=== PATIENT | female | born 1955 | race African-American/Black ===

== ENCOUNTER 2020-07-17 11:52 | Inpatient (IN) ==
[2020-07-17] MEDS ORDERED: niCARdipine INJ 25 MG in SODIUM CHLORIDE 0.9% 240 ML IV PRN ×2 (12:42→13:51)
[2020-07-17 13:25] LABS: Basophils % 0.4 % (0.0-0.8); Eosinophils # 0.1 10*3/uL (0.0-0.87); Eosinophils % 1.1 % (0.00-10.9); Hemoglobin 7.3 GM/DL (12.0-16.0); Immature Granulocytes % 0.3 %; Immature Granulocytes Absolute 0.02 #; Lymphocytes # 1.6 10*3/uL (1.4-4.0); Lymphocytes % 21.3 % (21.3-54.2); Mean Corpuscular HGB Conc 31.7 GM/DL (32-36); Mean Corpuscular Volume 70.8 FL (87-102); Monocytes % 4.9 % (1.7-12.7); Platelet Count 165 T/CUMM (130-400); Red Blood Count 3.25 MC/CUMM (3.8-5.5); Red Cell Distribution Width 19.1 % (9.3-17.3); White Blood Count 7.4 T/CUMM (4-12)
[2020-07-17 13:42] LABS: Hypochromasia 2+; Microcytosis 1+; Ovalocytes Slight; Platelet Estimate Adequate
[2020-07-17] MEDS ORDERED: DEXTROSE 50% 25 GM/50 ML VIAL IV PRN (13:51)
[2020-07-17] MEDS ORDERED: GLUCAGON 1 MG VIAL IM PRN (13:51)
[2020-07-17] MEDS ORDERED: ALBUTEROL 2.5 MG/3 ML NEB RESP TX PRN ×2 (13:51→13:57)
[2020-07-17] MEDS: HEPARIN 5,000 UNIT/1 ML VIAL SUBCUT SCH ×2 (16:40→22:04)
[2020-07-17] MEDS: FUROSEMIDE 40 MG/4 ML VIAL IV SCH (17:00)
[2020-07-17] MEDS: PANTOPRAZOLE 40 MG TABLET PO SCH (17:01)
[2020-07-17 17:05] LABS: Albumin 3.1 G/DL (3.4-5.0); Bilirubin,Total 0.4 MG/DL (0.2-1.0); Osmolality,Calculated 303.1 MOS/KG (273-304); Total Protein 7.2 G/DL (6.4-8.3)
[2020-07-17 17:09] LABS: % Iron Saturation 24.9 % (18-50); Ferritin 334.2 ng/ml (8-252)
[2020-07-17 17:17] LABS: Thyroid Stimulating Hormone 1.1 uIU/ml (0.358-3.74)
[2020-07-17] MEDS ORDERED: LABETALOL 20 MG/4 ML SYRINGE IV PRN (18:56)
[2020-07-17] MEDS: INSULIN REGULAR 100 UNIT/ML SUBCUT SCH (20:16)
[2020-07-18] MEDS: ONDANSETRON 4 MG/2 ML VIAL IV PRN ×2 (00:07→05:50)
[2020-07-18 04:15] LABS: Basophils % 0.5 % (0.0-0.8); Eosinophils # 0.2 10*3/uL (0.0-0.87); Eosinophils % 2.6 % (0.00-10.9); Immature Granulocytes % 0.5 %; Immature Granulocytes Absolute 0.03 #; Lymphocytes # 1.6 10*3/uL (1.4-4.0); Lymphocytes % 27.6 % (21.3-54.2); Mean Corpuscular Volume 70.7 FL (87-102); Monocytes % 5.9 % (1.7-12.7); Neutrophils % 62.9 % (38.7-73.9); Platelet Count 151 T/CUMM (130-400); Red Blood Count 2.83 MC/CUMM (3.8-5.5); Red Cell Distribution Width 18.9 % (9.3-17.3); White Blood Count 5.8 T/CUMM (4-12)
[2020-07-18 04:17] LABS: Hemoglobin 6.4 GM/DL (12.0-16.0)
[2020-07-18 04:41] LABS: Hypochromasia 2+; Microcytosis 1+; Platelet Estimate Adequate
[2020-07-18 04:56] LABS: Albumin 2.6 G/DL (3.4-5.0); Bilirubin,Total 0.8 MG/DL (0.2-1.0); Calcium 7.5 MG/DL (8.5-10.1); Osmolality,Calculated 308.7 MOS/KG (273-304); Risk Ratio 2.74; Total Protein 6.3 G/DL (6.4-8.3); VLDL CHOLESTEROL 18.4 MG/DL
[2020-07-18] MEDS: HEPARIN 5,000 UNIT/1 ML VIAL SUBCUT SCH (06:12)
[2020-07-18] MEDS: INSULIN REGULAR 100 UNIT/ML SUBCUT SCH ×4 (07:45→20:05)
[2020-07-18] MEDS ORDERED: SODIUM CHLORIDE 0.9% 1,000 ML IV PRN (07:57)
[2020-07-18] MEDS ORDERED: POTASSIUM CHLORIDE 20 MEQ TABLET PO ONE (08:00)
[2020-07-18] MEDS: PANTOPRAZOLE 40 MG TABLET PO SCH (09:31)
[2020-07-18] MEDS: carvediloL 6.25 MG TABLET PO SCH ×2 (09:31→18:00)
[2020-07-18] MEDS: CHOLECALCIFEROL 5,000 UNIT TABLET PO SCH (09:31)
[2020-07-18] MEDS: FUROSEMIDE 40 MG/4 ML VIAL IV SCH ×3 (09:32→19:52)
[2020-07-18] MEDS: IRON SUCROSE 200 MG in SODIUM CHLORIDE 0.9% 100 ML IV SCH (09:43)
[2020-07-18] MEDS ORDERED: ceFAZolin 1,000 MG in SYRINGE 1 EACH IV ONE (13:26)
[2020-07-18] MEDS: SEVELAMER CARBONATE 800 MG TABLET PO SCH (18:00)
[2020-07-19] MEDS: FUROSEMIDE 40 MG/4 ML VIAL IV SCH ×3 (00:50→15:47)
[2020-07-19 06:28] LABS: Basophils % 0.3 % (0.0-0.8); Eosinophils # 0.3 10*3/uL (0.0-0.87); Hematocrit 19.3 VOL% (35.7-47.0); Immature Granulocytes % 0.3 %; Immature Granulocytes Absolute 0.02 #; Lymphocytes # 2.2 10*3/uL (1.4-4.0); Lymphocytes % 34.4 % (21.3-54.2); Mean Corpuscular HGB Conc 31.6 GM/DL (32-36); Mean Corpuscular Volume 71.2 FL (87-102); Monocytes % 7.1 % (1.7-12.7); NRBC # 0.02 10*3/uL; Neutrophils % 52.9 % (38.7-73.9); Platelet Count 140 T/CUMM (130-400); Red Blood Count 2.71 MC/CUMM (3.8-5.5); Red Cell Distribution Width 19.6 % (9.3-17.3); White Blood Count 6.3 T/CUMM (4-12)
[2020-07-19] MEDS ORDERED: ceFAZolin 1,000 MG in SYRINGE 1 EACH IV ONE (06:30)
[2020-07-19] MEDS ORDERED: HEPARIN 5,000 UNIT/1 ML VIAL ONE (06:31)
[2020-07-19] MEDS ORDERED: BUPIVACAINE MPF 0.25% 30 ML VIAL ONE (06:31)
[2020-07-19] MEDS ORDERED: LIDOCAINE 1%/EPI INJ 20 ML VIAL ONE (06:32)
[2020-07-19 06:37] LABS: Albumin 2.6 G/DL (3.4-5.0); Bilirubin,Total 0.7 MG/DL (0.2-1.0); Calcium 7.3 MG/DL (8.5-10.1); Osmolality,Calculated 303.1 MOS/KG (273-304); Total Protein 6.1 G/DL (6.4-8.3)
[2020-07-19 07:01] LABS: Hemoglobin 6.1 GM/DL (12.0-16.0)
[2020-07-19] MEDS ORDERED: SCOPOLAMINE 1.5 MG PATCH TRANSDERM ONE (07:06)
[2020-07-19] MEDS ORDERED: DIAZEPAM 5 MG TABLET PO ONE (07:06)
[2020-07-19] MEDS: carvediloL 6.25 MG TABLET PO SCH ×2 (07:19→16:01)
[2020-07-19] MEDS: PANTOPRAZOLE 40 MG TABLET PO SCH ×2 (07:19→14:18)
[2020-07-19] MEDS ORDERED: LIDOCAINE 2% 5 ML VIAL ONE (08:19)
[2020-07-19] MEDS ORDERED: propofoL 200 MG/20 ML VIAL IV ONE (08:19)
[2020-07-19] MEDS ORDERED: MIDAZOLAM 2 MG/2 ML VIAL ONE (08:20)
[2020-07-19] MEDS ORDERED: fentaNYL 100 MCG/2 ML VIAL ONE (08:20)
[2020-07-19 09:36] LABS: Anisocytosis 1+; Eosinophils 5 % (0-10); Lymphocytes 32 % (20-55); Macrocytosis 1+; Segmented Neutrophils 54 % (50-85); Total Cells Counted 100
[2020-07-19 09:37] LABS: Hypochromasia Slight; Platelet Estimate Decreased; Polychromasia 2+
[2020-07-19] MEDS ORDERED: HEPARIN 10,000 UNIT/10 ML VIAL IV SCH (13:30)
[2020-07-19] MEDS: INSULIN REGULAR 100 UNIT/ML SUBCUT SCH ×4 (14:20→20:53)
[2020-07-19] MEDS: SEVELAMER CARBONATE 800 MG TABLET PO SCH ×2 (14:21→16:01)
[2020-07-19] MEDS: CHOLECALCIFEROL 5,000 UNIT TABLET PO SCH (14:22)
[2020-07-19] MEDS: IRON SUCROSE 200 MG in SODIUM CHLORIDE 0.9% 100 ML IV SCH (17:40)
[2020-07-19] MEDS: ROSUVASTATIN 20 MG TABLET PO SCH (20:52)
[2020-07-20] MEDS: FUROSEMIDE 40 MG/4 ML VIAL IV SCH ×2 (00:54→08:53)
[2020-07-20 07:08] LABS: Basophils % 0.4 % (0.0-0.8); Eosinophils # 0.2 10*3/uL (0.0-0.87); Eosinophils % 2.9 % (0.00-10.9); Hematocrit 28.1 VOL% (35.7-47.0); Hemoglobin 9.1 GM/DL (12.0-16.0); Immature Granulocytes % 0.5 %; Immature Granulocytes Absolute 0.04 #; Lymphocytes # 1.4 10*3/uL (1.4-4.0); Lymphocytes % 18.1 % (21.3-54.2); Mean Corpuscular HGB Conc 32.4 GM/DL (32-36); Mean Corpuscular Volume 74.3 FL (87-102); Monocytes % 6.4 % (1.7-12.7); NRBC # 0.03 10*3/uL; Neutrophils % 71.7 % (38.7-73.9); Platelet Count 128 T/CUMM (130-400); Red Blood Count 3.78 MC/CUMM (3.8-5.5); Red Cell Distribution Width 20.2 % (9.3-17.3)
[2020-07-20 07:33] LABS: Albumin 2.6 G/DL (3.4-5.0); Bilirubin,Total 0.7 MG/DL (0.2-1.0); Calcium 7.6 MG/DL (8.5-10.1); Total Protein 6.4 G/DL (6.4-8.3)
[2020-07-20] MEDS: INSULIN REGULAR 100 UNIT/ML SUBCUT SCH ×3 (08:51→21:02)
[2020-07-20] MEDS: carvediloL 6.25 MG TABLET PO SCH ×2 (08:53→17:02)
[2020-07-20] MEDS: SEVELAMER CARBONATE 800 MG TABLET PO SCH ×3 (08:53→17:02)
[2020-07-20] MEDS: PANTOPRAZOLE 40 MG TABLET PO SCH (08:53)
[2020-07-20] MEDS ORDERED: cloNIDine 0.3 MG/24 HR PATCH TRANSDERM SCH (09:00)
[2020-07-20] MEDS: CHOLECALCIFEROL 5,000 UNIT TABLET PO SCH (09:55)
[2020-07-20 10:18] LABS: Hypochromasia 4+; Microcytosis 1+; Schistocytes Few; Target Cells Few
[2020-07-20 10:19] LABS: Anisocytosis 2+; Ovalocytes Few; Platelet Estimate Adequate; Poikilocytosis 1+
[2020-07-20] MEDS: IRON SUCROSE 200 MG in SODIUM CHLORIDE 0.9% 100 ML IV SCH (13:00)
[2020-07-20] MEDS: LABETALOL 20 MG/4 ML SYRINGE IV PRN (21:18)
[2020-07-20] MEDS: ROSUVASTATIN 20 MG TABLET PO SCH (21:18)
[2020-07-21 06:27] LABS: Basophils % 0.2 % (0.0-0.8); Eosinophils # 0.2 10*3/uL (0.0-0.87); Eosinophils % 2.2 % (0.00-10.9); Hematocrit 28.7 VOL% (35.7-47.0); Hemoglobin 9.3 GM/DL (12.0-16.0); Immature Granulocytes % 0.6 %; Immature Granulocytes Absolute 0.05 #; Lymphocytes # 1.8 10*3/uL (1.4-4.0); Lymphocytes % 19.5 % (21.3-54.2); Mean Corpuscular HGB Conc 32.4 GM/DL (32-36); Mean Corpuscular Volume 74.9 FL (87-102); Monocytes % 8.6 % (1.7-12.7); NRBC # 0.04 10*3/uL; Neutrophils % 68.9 % (38.7-73.9); Platelet Count 112 T/CUMM (130-400); Red Blood Count 3.83 MC/CUMM (3.8-5.5); Red Cell Distribution Width 20.1 % (9.3-17.3)
[2020-07-21 06:47] LABS: Calcium 7.7 MG/DL (8.5-10.1)
[2020-07-21 07:05] LABS: Hypochromasia 1+; Microcytosis 1+; Platelet Estimate Decreased
[2020-07-21 08:44] LABS: Alanine Aminotransferase 12 U/L (13-56); Albumin 2.6 G/DL (3.4-5.0); Alkaline Phosphatase 125 U/L (45-117); Aspartate Amino Transferase 23 U/L (0-37); Bilirubin,Direct < 0.100 MG/DL (0.0-0.20); Bilirubin,Indirect 0.3 MG/DL (0.0-1.0); Bilirubin,Total < 0.39 MG/DL (0.2-1.0); Total Protein 6.4 G/DL (6.4-8.3)
[2020-07-21] MEDS: INSULIN REGULAR 100 UNIT/ML SUBCUT SCH ×4 (09:24→20:44)
[2020-07-21] MEDS: carvediloL 6.25 MG TABLET PO SCH ×2 (09:41→16:30)
[2020-07-21] MEDS: CHOLECALCIFEROL 5,000 UNIT TABLET PO SCH (09:41)
[2020-07-21] MEDS: PANTOPRAZOLE 40 MG TABLET PO SCH (09:42)
[2020-07-21] MEDS: SEVELAMER CARBONATE 800 MG TABLET PO SCH ×3 (10:49→16:30)
[2020-07-21] MEDS: LABETALOL 20 MG/4 ML SYRINGE IV PRN (11:02)
[2020-07-21 14:00] LABS: Hepatitis B Core IgM Quant 0.09 Index; Hepatitis B Surface Ag Quant < 0.10 Index; Hepatitis B Surface Ag Result Negative (Negative); Hepatitis C Virus Ab Quant < 0.02 Index; Hepatitis C Virus Ab Result Negative (Negative)
[2020-07-21] MEDS: POLYETHYLENE GLYCOL POWDER 17 GM PACK PO SCH (16:29)
[2020-07-21] MEDS: ROSUVASTATIN 20 MG TABLET PO SCH (20:44)
[2020-07-22 06:46] LABS: Basophils % 0.3 % (0.0-0.8); Eosinophils # 0.2 10*3/uL (0.0-0.87); Eosinophils % 2.2 % (0.00-10.9); Hematocrit 31.3 VOL% (35.7-47.0); Hemoglobin 9.8 GM/DL (12.0-16.0); Immature Granulocytes % 0.4 %; Immature Granulocytes Absolute 0.04 #; Lymphocytes # 2.7 10*3/uL (1.4-4.0); Lymphocytes % 27.8 % (21.3-54.2); Mean Corpuscular HGB Conc 31.3 GM/DL (32-36); Mean Corpuscular Volume 74.7 FL (87-102); Monocytes % 8.8 % (1.7-12.7); NRBC # 0.02 10*3/uL; Neutrophils % 60.5 % (38.7-73.9); Platelet Count 110 T/CUMM (130-400); Red Blood Count 4.19 MC/CUMM (3.8-5.5); Red Cell Distribution Width 19.6 % (9.3-17.3); White Blood Count 9.6 T/CUMM (4-12)
[2020-07-22 07:10] LABS: Calcium 8.1 MG/DL (8.5-10.1); Hypochromasia 1+; Microcytosis Slight; Osmolality,Calculated 283.5 MOS/KG (273-304); Platelet Estimate Decreased
[2020-07-22] MEDS: INSULIN REGULAR 100 UNIT/ML SUBCUT SCH ×5 (07:45→20:59)
[2020-07-22] MEDS: POLYETHYLENE GLYCOL POWDER 17 GM PACK PO SCH (11:10)
[2020-07-22] MEDS: CHOLECALCIFEROL 5,000 UNIT TABLET PO SCH (11:10)
[2020-07-22] MEDS: PANTOPRAZOLE 40 MG TABLET PO SCH (11:10)
[2020-07-22] MEDS: SEVELAMER CARBONATE 800 MG TABLET PO SCH ×3 (11:10→16:37)
[2020-07-22] MEDS: carvediloL 6.25 MG TABLET PO SCH ×2 (13:24→16:37)
[2020-07-22] MEDS: ROSUVASTATIN 20 MG TABLET PO SCH (21:00)
[2020-07-23 08:25] LABS: Basophils % 0.4 % (0.0-0.8); Eosinophils # 0.1 10*3/uL (0.0-0.87); Eosinophils % 1.5 % (0.00-10.9); Hematocrit 34.2 VOL% (35.7-47.0); Hemoglobin 10.5 GM/DL (12.0-16.0); Immature Granulocytes % 0.3 %; Immature Granulocytes Absolute 0.03 #; Lymphocytes % 21.7 % (21.3-54.2); Mean Corpuscular HGB Conc 30.7 GM/DL (32-36); Mean Corpuscular Volume 78.6 FL (87-102); Monocytes % 8.5 % (1.7-12.7); Neutrophils % 67.6 % (38.7-73.9); Platelet Count 105 T/CUMM (130-400); Red Blood Count 4.35 MC/CUMM (3.8-5.5); White Blood Count 9.4 T/CUMM (4-12)
[2020-07-23] MEDS: CHOLECALCIFEROL 5,000 UNIT TABLET PO SCH (08:57)
[2020-07-23] MEDS: PANTOPRAZOLE 40 MG TABLET PO SCH (08:57)
[2020-07-23] MEDS: carvediloL 6.25 MG TABLET PO SCH ×2 (08:58→18:01)
[2020-07-23] MEDS: SEVELAMER CARBONATE 800 MG TABLET PO SCH ×3 (08:58→18:08)
[2020-07-23] MEDS: POLYETHYLENE GLYCOL POWDER 17 GM PACK PO SCH (08:58)
[2020-07-23] MEDS ORDERED: amLODIPine 5 MG TABLET PO SCH (09:00)
[2020-07-23] MEDS: INSULIN REGULAR 100 UNIT/ML SUBCUT SCH ×4 (09:40→20:34)
[2020-07-23 10:09] LABS: Calcium 8.4 MG/DL (8.5-10.1); Osmolality,Calculated 274.1 MOS/KG (273-304)
[2020-07-23] MEDS: PROCHLORPERAZINE 5 MG TABLET PO SCH (20:35)
[2020-07-23] MEDS: CYCLOBENZAPRINE 10 MG TABLET PO SCH (20:36)
[2020-07-23] MEDS: ROSUVASTATIN 20 MG TABLET PO SCH (20:36)
[2020-07-24 05:30] LABS: Basophils % 0.4 % (0.0-0.8); Eosinophils # 0.2 10*3/uL (0.0-0.87); Eosinophils % 1.4 % (0.00-10.9); Hematocrit 31.9 VOL% (35.7-47.0); Hemoglobin 10.4 GM/DL (12.0-16.0); Immature Granulocytes % 0.4 %; Immature Granulocytes Absolute 0.04 #; Lymphocytes # 2.3 10*3/uL (1.4-4.0); Lymphocytes % 21.2 % (21.3-54.2); Mean Corpuscular HGB Conc 32.6 GM/DL (32-36); Mean Corpuscular Volume 74.7 FL (87-102); Neutrophils % 64.6 % (38.7-73.9); Platelet Count 132 T/CUMM (130-400); Red Blood Count 4.27 MC/CUMM (3.8-5.5); Red Cell Distribution Width 19.1 % (9.3-17.3)
[2020-07-24 05:43] LABS: Calcium 8.6 MG/DL (8.5-10.1); Osmolality,Calculated 273.8 MOS/KG (273-304)
[2020-07-24 06:01] LABS: Hypochromasia 1+
[2020-07-24 06:02] LABS: Microcytosis Slight; Platelet Estimate Normal
[2020-07-24] MEDS: CYCLOBENZAPRINE 10 MG TABLET PO SCH (08:50)
[2020-07-24] MEDS: SEVELAMER CARBONATE 800 MG TABLET PO SCH ×2 (08:50→11:38)
[2020-07-24] MEDS: CHOLECALCIFEROL 5,000 UNIT TABLET PO SCH (08:50)
[2020-07-24] MEDS: PROCHLORPERAZINE 5 MG TABLET PO SCH (08:50)
[2020-07-24] MEDS: PANTOPRAZOLE 40 MG TABLET PO SCH (08:50)
[2020-07-24] MEDS: carvediloL 6.25 MG TABLET PO SCH (08:51)
[2020-07-24] MEDS: POLYETHYLENE GLYCOL POWDER 17 GM PACK PO SCH (08:51)
[2020-07-24] MEDS: INSULIN REGULAR 100 UNIT/ML SUBCUT SCH ×2 (09:11→11:09)
[2020-07-24] MEDS ORDERED: LACTULOSE 20 GM/30 ML UDCUP PO ONE (11:18)
[2020-07-24 13:28] VITALS: BP 123/68
== END 2020-07-24 14:05 | disposition home health service (06) | DRG 291 ==
LOC: N.ED 11:52 → N.EDINP 13:12 → SUATTDRO 13:12 → N.ICU 17:53 → N.4E 07-18 15:04
PROVIDERS: ADMIT Internal Medicine; ATTEND Hospitalist

== ENCOUNTER 2020-08-30 16:53 | Inpatient (IN) ==
[2020-08-30] MEDS ORDERED: HYDROmorphone 2 MG/1 ML VIAL IV STA ×2 (17:39→21:42)
[2020-08-30 18:02] LABS: Basophils % 0.1 % (0.0-0.8); Eosinophils # 0.3 10*3/uL (0.0-0.87); Eosinophils % 4.1 % (0.00-10.9); Hematocrit 24.7 VOL% (35.7-47.0); Hemoglobin 7.9 GM/DL (12.0-16.0); Immature Granulocytes % 0.4 %; Immature Granulocytes Absolute 0.03 #; Lymphocytes # 1.3 10*3/uL (1.4-4.0); Lymphocytes % 18.7 % (21.3-54.2); Mean Corpuscular Volume 75.3 FL (87-102); Mean Platelet Volume 10.2 FL (9.6-12.0); Monocytes % 5.7 % (1.7-12.7); Platelet Count 148 T/CUMM (130-400); Red Blood Count 3.28 MC/CUMM (3.8-5.5); Red Cell Distribution Width 17.1 % (9.3-17.3); White Blood Count 7.2 T/CUMM (4-12)
[2020-08-30 18:12] LABS: INR 1.1; PT Patient Result 11.7 SECS (9.8-11.9); Partial Thromboplastin Time 41.4 SECS (23.9-33.8)
[2020-08-30 18:15] LABS: Calcium 7.9 MG/DL (8.5-10.1); Osmolality,Calculated 293.4 MOS/KG (273-304)
[2020-08-30] MEDS ORDERED: ACETAMINOPHEN 325 MG TABLET PO PRN (23:55)
[2020-08-30] MEDS ORDERED: DEXTROSE 50% 25 GM/50 ML VIAL IV PRN (23:55)
[2020-08-30] MEDS ORDERED: DOCUSATE SODIUM 100 MG CAPSULE PO PRN (23:55)
[2020-08-30] MEDS ORDERED: GLUCAGON 1 MG VIAL IM PRN (23:55)
[2020-08-31] MEDS ORDERED: HEPARIN 5,000 UNIT/1 ML VIAL SUBCUT SCH (00:30)
[2020-08-31] MEDS: SEVELAMER CARBONATE 800 MG TABLET PO SCH ×3 (02:01→20:00)
[2020-08-31 06:03] LABS: Basophils % 0.3 % (0.0-0.8); Eosinophils # 0.3 10*3/uL (0.0-0.87); Eosinophils % 4.3 % (0.00-10.9); Hematocrit 24.9 VOL% (35.7-47.0); Hemoglobin 7.8 GM/DL (12.0-16.0); Immature Granulocytes % 0.4 %; Immature Granulocytes Absolute 0.03 #; Lymphocytes # 1.3 10*3/uL (1.4-4.0); Lymphocytes % 16.8 % (21.3-54.2); Mean Corpuscular HGB Conc 31.3 GM/DL (32-36); Mean Corpuscular Volume 75.5 FL (87-102); Mean Platelet Volume 10.9 FL (9.6-12.0); Monocytes % 7.4 % (1.7-12.7); Neutrophils % 70.8 % (38.7-73.9); Platelet Count 163 T/CUMM (130-400); Red Cell Distribution Width 17.2 % (9.3-17.3); White Blood Count 7.7 T/CUMM (4-12)
[2020-08-31 06:20] LABS: Calcium 8.2 MG/DL (8.5-10.1); Osmolality,Calculated 295.4 MOS/KG (273-304)
[2020-08-31] MEDS: HYDROmorphone 2 MG/1 ML VIAL IV PRN ×3 (06:51→19:59)
[2020-08-31] MEDS ORDERED: cloNIDine 0.3 MG/24 HR PATCH TRANSDERM SCH (09:00)
[2020-08-31] MEDS: INSULIN LISPRO 100 UNIT/ML SUBCUT SCH ×4 (11:11→20:01)
[2020-08-31] MEDS: amLODIPine 5 MG TABLET PO SCH (11:18)
[2020-08-31] MEDS: CHOLECALCIFEROL 5,000 UNIT TABLET PO SCH (11:18)
[2020-08-31] MEDS ORDERED: EPOETIN ALFA-EPBX 10,000 UNIT/ML VIAL IV PRN (11:18)
[2020-08-31] MEDS: ROSUVASTATIN 20 MG TABLET PO SCH (11:18)
[2020-08-31] MEDS: carvediloL 6.25 MG TABLET PO SCH ×2 (11:19→17:39)
[2020-08-31] MEDS: ASPIRIN CHEW 81 MG TABLET PO SCH (11:32)
[2020-08-31] MEDS: ALBUTEROL 2.5 MG/3 ML NEB RESP TX SCH ×3 (14:30→23:42)
[2020-09-01] MEDS: ALBUTEROL 2.5 MG/3 ML NEB RESP TX SCH ×5 (03:28→20:52)
[2020-09-01] MEDS: INSULIN LISPRO 100 UNIT/ML SUBCUT SCH ×4 (08:17→21:38)
[2020-09-01] MEDS: carvediloL 6.25 MG TABLET PO SCH ×2 (10:48→18:55)
[2020-09-01] MEDS: amLODIPine 5 MG TABLET PO SCH (10:48)
[2020-09-01] MEDS: ROSUVASTATIN 20 MG TABLET PO SCH (10:52)
[2020-09-01] MEDS: ASPIRIN CHEW 81 MG TABLET PO SCH (12:04)
[2020-09-01] MEDS: CHOLECALCIFEROL 5,000 UNIT TABLET PO SCH (12:05)
[2020-09-01] MEDS: SEVELAMER CARBONATE 800 MG TABLET PO SCH ×2 (12:05→21:25)
[2020-09-01 22:29] LABS: Hepatitis B Core IgM Quant 0.07 Index; Hepatitis B Surface Ag Quant 0.16 Index; Hepatitis B Surface Ag Result Negative (Negative); Hepatitis C Virus Ab Result Negative (Negative)
[2020-09-02] MEDS: ALBUTEROL 2.5 MG/3 ML NEB RESP TX SCH ×7 (01:12→19:53)
[2020-09-02 05:19] LABS: Basophils % 0.3 % (0.0-0.8); Eosinophils # 0.4 10*3/uL (0.0-0.87); Eosinophils % 5.2 % (0.00-10.9); Hematocrit 24.4 VOL% (35.7-47.0); Hemoglobin 7.7 GM/DL (12.0-16.0); Immature Granulocytes % 0.5 %; Immature Granulocytes Absolute 0.04 #; Lymphocytes # 1.7 10*3/uL (1.4-4.0); Lymphocytes % 22.7 % (21.3-54.2); Mean Corpuscular HGB Conc 31.6 GM/DL (32-36); Mean Corpuscular Volume 74.6 FL (87-102); Mean Platelet Volume 9.8 FL (9.6-12.0); Monocytes % 7.3 % (1.7-12.7); Platelet Count 169 T/CUMM (130-400); Red Blood Count 3.27 MC/CUMM (3.8-5.5); Red Cell Distribution Width 16.5 % (9.3-17.3); White Blood Count 7.7 T/CUMM (4-12)
[2020-09-02 06:45] LABS: Anisocytosis 1+; Burr Cells Few; Ovalocytes Few; Platelet Estimate Normal
[2020-09-02 06:46] LABS: Hypochromasia Slight
[2020-09-02 09:06] LABS: Sedimentation Rate-Westergren 66 MM/HR (0-30)
[2020-09-02] MEDS: ASPIRIN CHEW 81 MG TABLET PO SCH (09:27)
[2020-09-02] MEDS: ROSUVASTATIN 20 MG TABLET PO SCH (09:27)
[2020-09-02] MEDS: CHOLECALCIFEROL 5,000 UNIT TABLET PO SCH (09:27)
[2020-09-02] MEDS: SEVELAMER CARBONATE 800 MG TABLET PO SCH ×2 (09:28→20:35)
[2020-09-02] MEDS: amLODIPine 5 MG TABLET PO SCH (09:28)
[2020-09-02] MEDS: carvediloL 6.25 MG TABLET PO SCH ×2 (09:28→17:45)
[2020-09-02] MEDS: INSULIN LISPRO 100 UNIT/ML SUBCUT SCH ×4 (09:29→21:51)
[2020-09-02 10:20] LABS: Vitamin B12 731 PG/ML (211-911)
[2020-09-02 11:34] LABS: Hemoglobin A1 (Alkaline) 97.9 % (96.5-98.5); Hemoglobin A2 (Alkaline) 2.1 % (1.5-3.5)
[2020-09-02] MEDS ORDERED: SODIUM CHLORIDE 0.9% 1,000 ML IV PRN (11:52)
[2020-09-02] MEDS: HYDROmorphone 2 MG/1 ML VIAL IV PRN (13:27)
[2020-09-02] MEDS: ONDANSETRON 4 MG/2 ML VIAL IV PRN (14:30)
[2020-09-03] MEDS: ALBUTEROL 2.5 MG/3 ML NEB RESP TX SCH ×7 (01:53→23:09)
[2020-09-03] MEDS: ONDANSETRON 4 MG/2 ML VIAL IV PRN ×2 (06:36→13:12)
[2020-09-03] MEDS: INSULIN LISPRO 100 UNIT/ML SUBCUT SCH ×4 (07:13→21:40)
[2020-09-03] MEDS ORDERED: HEPARIN 10,000 UNIT/10 ML VIAL IV PRN ×2 (10:40→11:00)
[2020-09-03] MEDS: ROSUVASTATIN 20 MG TABLET PO SCH (11:55)
[2020-09-03] MEDS: SEVELAMER CARBONATE 800 MG TABLET PO SCH ×2 (11:55→16:03)
[2020-09-03] MEDS: carvediloL 6.25 MG TABLET PO SCH ×2 (11:56→16:03)
[2020-09-03] MEDS: CHOLECALCIFEROL 5,000 UNIT TABLET PO SCH (11:56)
[2020-09-03] MEDS: ASPIRIN CHEW 81 MG TABLET PO SCH (11:56)
[2020-09-03] MEDS: amLODIPine 10 MG TABLET PO SCH (11:56)
[2020-09-03] MEDS: HYDROmorphone 2 MG/1 ML VIAL IV PRN (12:06)
[2020-09-03] MEDS ORDERED: SODIUM CHLORIDE 0.9% 1,000 ML IV PRN (17:46)
[2020-09-04] MEDS: ALBUTEROL 2.5 MG/3 ML NEB RESP TX SCH ×4 (03:32→16:08)
[2020-09-04] MEDS: amLODIPine 10 MG TABLET PO SCH (10:04)
[2020-09-04] MEDS: carvediloL 6.25 MG TABLET PO SCH (10:04)
[2020-09-04] MEDS: CHOLECALCIFEROL 5,000 UNIT TABLET PO SCH (10:04)
[2020-09-04] MEDS: SEVELAMER CARBONATE 800 MG TABLET PO SCH (10:04)
[2020-09-04] MEDS: ASPIRIN CHEW 81 MG TABLET PO SCH (10:04)
[2020-09-04] MEDS: ROSUVASTATIN 20 MG TABLET PO SCH (10:05)
[2020-09-04 11:04] VITALS: BP 139/83
[2020-09-04] MEDS: HYDROmorphone 2 MG/1 ML VIAL IV PRN (11:14)
== END 2020-09-04 15:00 | disposition home health service (06) | DRG 535 ==
LOC: EDUNIT# → EDBD → N.ED 16:53 → SUATTDRO 21:52 → N.EDINP 21:52 → N.3E 23:33
PROVIDERS: ADMIT Phlebology; ATTEND Internal Medicine

== ENCOUNTER 2022-02-13 04:58 | Inpatient (IN) ==
[2022-02-13] MEDS ORDERED: ONDANSETRON 4 MG/2 ML VIAL IV STA (05:23)
[2022-02-13] MEDS ORDERED: methylPREDNISolone SOD SUC 125 MG/2 ML VIAL IV STA (05:23)
[2022-02-13] MEDS ORDERED: NITROGLYCERIN 2% OINT 1 INCH/GM PACK TOP STA (05:23)
[2022-02-13] MEDS ORDERED: FUROSEMIDE 100 MG/10 ML VIAL IV STA (05:23)
[2022-02-13] MEDS ORDERED: hydrALAZINE 20 MG/1 ML VIAL IV STA (05:23)
[2022-02-13] MEDS ORDERED: ALBUTEROL/IPRATROPIUM 3 ML NEB RESP TX STA (05:23)
[2022-02-13 05:39] LABS: Basophils % 0.4 % (0.0-0.8); Eosinophils # 0.1 10*3/uL (0.0-0.87); Eosinophils % 1.1 % (0.00-10.9); Hematocrit 23.6 VOL% (35.7-47.0); Hemoglobin 7.6 GM/DL (12.0-16.0); Immature Granulocytes % 0.6 %; Immature Granulocytes Absolute 0.03 #; Lymphocytes % 18.2 % (21.3-54.2); Mean Corpuscular HGB Conc 32.2 GM/DL (32-36); Mean Corpuscular Volume 72.8 FL (87-102); Mean Platelet Volume 10.7 FL (9.6-12.0); Monocytes # 0.8 10*3/uL (0.11-0.8); Monocytes % 14.2 % (1.7-12.7); Neutrophils % 65.5 % (38.7-73.9); Platelet Count 143 T/CUMM (130-400); Red Blood Count 3.24 MC/CUMM (3.8-5.5); Red Cell Distribution Width 17.4 % (9.3-17.3); White Blood Count 5.4 T/CUMM (4-12)
[2022-02-13 05:47] LABS: PT Patient Result 11.2 SECS (10.5-12.0)
[2022-02-13 05:53] LABS: Albumin 3.6 G/DL (3.4-5.0); Bilirubin,Total 0.6 MG/DL (0.20-1.00); Calcium 8.8 MG/DL (8.5-10.1); Osmolality,Calculated 286.7 MOS/KG (273-304); Total Protein 7.4 G/DL (6.4-8.2)
[2022-02-13 05:58] LABS: Platelet Estimate Adequate
[2022-02-13 05:59] LABS: Anisocytosis Slight; Hypochromia Slight; Poikilocytosis Slight; Target Cells Few; Tear Drop Cells Few
[2022-02-13] MEDS ORDERED: LABETALOL 20 MG/4 ML SYRINGE IV STA (05:59)
[2022-02-13] MEDS ORDERED: ACETAMINOPHEN 325 MG TABLET PO PRN (07:28)
[2022-02-13] MEDS ORDERED: GLUCAGON 1 MG VIAL IM PRN (07:28)
[2022-02-13] MEDS ORDERED: ONDANSETRON 4 MG/2 ML VIAL IV PRN (07:28)
[2022-02-13] MEDS ORDERED: MORPHINE 2 MG/1 ML SYRINGE IV PRN (07:28)
[2022-02-13] MEDS ORDERED: DEXTROSE 10% 250 ML BAG IV PRN (07:32)
[2022-02-13] MEDS ORDERED: DEXTROSE 50% 25 GM/50 ML VIAL IV PRN (07:36)
[2022-02-13 09:08] LABS: % Iron Saturation 18.9 % (18-50)
[2022-02-13] MEDS: hydrALAZINE 20 MG/1 ML VIAL IV PRN (12:46)
[2022-02-13] MEDS: ASPIRIN EC 81 MG TABLET PO SCH (13:01)
[2022-02-13] MEDS: carvediloL 6.25 MG TABLET PO SCH ×2 (13:01→19:30)
[2022-02-13] MEDS: SEVELAMER CARBONATE 800 MG TABLET PO SCH (13:01)
[2022-02-13] MEDS: HEPARIN 5,000 UNIT/1 ML VIAL SUBCUT SCH ×2 (13:02→19:30)
[2022-02-13] MEDS: LOSARTAN 25 MG TABLET PO SCH (13:02)
[2022-02-13] MEDS: amLODIPine 5 MG TABLET PO SCH (13:03)
[2022-02-13] MEDS: minoxidiL 2.5 MG TABLET PO SCH (13:03)
[2022-02-13] MEDS: INSULIN LISPRO 100 UNIT/ML SUBCUT SCH ×3 (13:03→20:20)
[2022-02-13] MEDS: ALBUTEROL/IPRATROPIUM 3 ML NEB RESP TX SCH ×2 (13:28→20:29)
[2022-02-13 15:30] LABS: Hematocrit 25.7 VOL% (35.7-47.0); Hemoglobin 8.5 GM/DL (12.0-16.0)
[2022-02-14] MEDS ORDERED: ZALEPLON 5 MG CAPSULE PO PRN (00:24)
[2022-02-14] MEDS: ALBUTEROL INHALER 18 GM INH SCH ×3 (01:10→20:00)
[2022-02-14] MEDS: hydrALAZINE 20 MG/1 ML VIAL IV PRN ×3 (04:35→16:57)
[2022-02-14 05:59] LABS: Basophils % 0.2 % (0.0-0.8); Eosinophils # 0.1 10*3/uL (0.0-0.87); Eosinophils % 1.5 % (0.00-10.9); Hematocrit 24.6 VOL% (35.7-47.0); Hemoglobin 8.1 GM/DL (12.0-16.0); Immature Granulocytes % 0.9 %; Immature Granulocytes Absolute 0.04 #; Lymphocytes # 1.1 10*3/uL (1.4-4.0); Lymphocytes % 23.5 % (21.3-54.2); Mean Corpuscular HGB Conc 32.9 GM/DL (32-36); Mean Platelet Volume 10.3 FL (9.6-12.0); Monocytes # 0.5 10*3/uL (0.11-0.8); Monocytes % 11.9 % (1.7-12.7); Platelet Count 126 T/CUMM (130-400); Red Blood Count 3.28 MC/CUMM (3.8-5.5); Red Cell Distribution Width 18.5 % (9.3-17.3); White Blood Count 4.6 T/CUMM (4-12)
[2022-02-14 06:21] LABS: Anisocytosis 1+; Ovalocytes Few; Platelet Estimate Adequate; Target Cells Few
[2022-02-14 06:22] LABS: Hypochromia Slight
[2022-02-14 06:28] LABS: Folate 6.08 NG/ML (5.38-24.0)
[2022-02-14 06:31] LABS: Calcium 8.3 MG/DL (8.5-10.1); Potassium 3.3 MMOL/L (3.5-5.1); Thyroid Stimulating Hormone 1.05 uIU/ml (0.358-3.74)
[2022-02-14 06:36] LABS: Risk Ratio 2.22
[2022-02-14] MEDS: SEVELAMER CARBONATE 800 MG TABLET PO SCH (08:43)
[2022-02-14] MEDS: ASPIRIN EC 81 MG TABLET PO SCH (08:43)
[2022-02-14] MEDS: LOSARTAN 25 MG TABLET PO SCH (08:44)
[2022-02-14] MEDS: amLODIPine 5 MG TABLET PO SCH (08:44)
[2022-02-14] MEDS: minoxidiL 2.5 MG TABLET PO SCH (08:44)
[2022-02-14] MEDS: carvediloL 6.25 MG TABLET PO SCH ×2 (08:45→21:05)
[2022-02-14] MEDS: HEPARIN 5,000 UNIT/1 ML VIAL SUBCUT SCH ×2 (08:49→21:05)
[2022-02-14] MEDS: INSULIN LISPRO 100 UNIT/ML SUBCUT SCH ×4 (09:00→21:12)
[2022-02-14] MEDS ORDERED: ALBUTEROL 2.5 MG/3 ML NEB RESP TX PRN (12:58)
[2022-02-14] MEDS: hydrALAZINE 25 MG TABLET PO SCH ×2 (16:00→21:17)
[2022-02-14] MEDS: ASCORBIC ACID 500 MG TABLET PO SCH (16:15)
[2022-02-14] MEDS: FAMOTIDINE 20 MG TABLET PO SCH (16:15)
[2022-02-14] MEDS: FERROUS SULFATE 325 MG TABLET PO SCH (16:15)
[2022-02-14] MEDS: ZALEPLON 5 MG CAPSULE PO PRN (21:05)
[2022-02-14] MEDS: ATORVASTATIN 40 MG TABLET PO SCH (21:05)
[2022-02-15] MEDS: ALBUTEROL INHALER 18 GM INH SCH ×3 (01:00→21:19)
[2022-02-15 05:19] LABS: Basophils % 0.5 % (0.0-0.8); Eosinophils # 0.1 10*3/uL (0.0-0.87); Eosinophils % 1.6 % (0.00-10.9); Hematocrit 24.5 VOL% (35.7-47.0); Immature Granulocytes % 0.9 %; Immature Granulocytes Absolute 0.04 #; Lymphocytes # 1.6 10*3/uL (1.4-4.0); Lymphocytes % 35.6 % (21.3-54.2); Mean Corpuscular HGB Conc 32.7 GM/DL (32-36); Mean Corpuscular Volume 74.9 FL (87-102); Mean Platelet Volume 11.1 FL (9.6-12.0); Monocytes # 0.5 10*3/uL (0.11-0.8); Monocytes % 11.9 % (1.7-12.7); Neutrophils % 49.5 % (38.7-73.9); Platelet Count 137 T/CUMM (130-400); Red Blood Count 3.27 MC/CUMM (3.8-5.5); Red Cell Distribution Width 18.8 % (9.3-17.3); White Blood Count 4.4 T/CUMM (4-12)
[2022-02-15 05:38] LABS: Hypochromia 1+; Target Cells Few
[2022-02-15 05:40] LABS: Anisocytosis 1+; Ovalocytes Slight; Platelet Estimate Adequate
[2022-02-15 05:41] LABS: Albumin 2.8 G/DL (3.4-5.0); Bilirubin,Total 0.4 MG/DL (0.20-1.00); Calcium 7.7 MG/DL (8.5-10.1); Osmolality,Calculated 283.8 MOS/KG (273-304); Potassium 3.3 MMOL/L (3.5-5.1); Total Protein 6.5 G/DL (6.4-8.2)
[2022-02-15] MEDS: INSULIN LISPRO 100 UNIT/ML SUBCUT SCH ×4 (08:13→21:19)
[2022-02-15] MEDS: ASPIRIN EC 81 MG TABLET PO SCH (10:43)
[2022-02-15] MEDS: FERROUS SULFATE 325 MG TABLET PO SCH ×2 (10:43→16:13)
[2022-02-15] MEDS: hydrALAZINE 25 MG TABLET PO SCH ×3 (10:43→21:18)
[2022-02-15] MEDS: SEVELAMER CARBONATE 800 MG TABLET PO SCH (10:43)
[2022-02-15] MEDS: carvediloL 6.25 MG TABLET PO SCH ×2 (10:43→21:18)
[2022-02-15] MEDS: HEPARIN 5,000 UNIT/1 ML VIAL SUBCUT SCH ×2 (10:44→21:17)
[2022-02-15] MEDS: ASCORBIC ACID 500 MG TABLET PO SCH (10:44)
[2022-02-15] MEDS: FAMOTIDINE 20 MG TABLET PO SCH (10:44)
[2022-02-15] MEDS: minoxidiL 2.5 MG TABLET PO SCH (10:44)
[2022-02-15] MEDS ORDERED: POTASSIUM CHLORIDE 20 MEQ TABLET PO ONE (10:49)
[2022-02-15] MEDS: CHOLECALCIFEROL 5,000 UNIT TABLET PO SCH (12:24)
[2022-02-15] MEDS: DEXAMETHASONE 4 MG TABLET PO SCH (16:13)
[2022-02-15] MEDS: ATORVASTATIN 40 MG TABLET PO SCH (21:18)
[2022-02-15] MEDS: ZALEPLON 5 MG CAPSULE PO PRN (21:18)
[2022-02-16] MEDS: ALBUTEROL INHALER 18 GM INH SCH ×4 (00:05→21:04)
[2022-02-16 05:54] LABS: Basophils % 0.2 % (0.0-0.8); Eosinophils % 0.2 % (0.00-10.9); Hematocrit 25.7 VOL% (35.7-47.0); Hemoglobin 8.2 GM/DL (12.0-16.0); Immature Granulocytes % 0.7 %; Immature Granulocytes Absolute 0.03 #; Lymphocytes # 0.9 10*3/uL (1.4-4.0); Mean Corpuscular HGB Conc 31.9 GM/DL (32-36); Mean Corpuscular Volume 75.8 FL (87-102); Mean Platelet Volume 11.1 FL (9.6-12.0); Monocytes # 0.2 10*3/uL (0.11-0.8); Neutrophils % 74.9 % (38.7-73.9); Platelet Count 164 T/CUMM (130-400); Red Blood Count 3.39 MC/CUMM (3.8-5.5); Red Cell Distribution Width 19.3 % (9.3-17.3); White Blood Count 4.3 T/CUMM (4-12)
[2022-02-16 06:10] LABS: Bilirubin,Total 0.5 MG/DL (0.20-1.00); Calcium 7.8 MG/DL (8.5-10.1); Osmolality,Calculated 287.8 MOS/KG (273-304); Total Protein 6.6 G/DL (6.4-8.2)
[2022-02-16 06:20] LABS: Hypochromia 1+; Lymphocytes 17 % (20-55); Microcytosis 1+; Myelocytes 1 %; Target Cells Slight; Total Cells Counted 100
[2022-02-16 06:21] LABS: Platelet Estimate Adequate
[2022-02-16] MEDS: INSULIN LISPRO 100 UNIT/ML SUBCUT SCH ×4 (08:07→21:05)
[2022-02-16] MEDS: carvediloL 6.25 MG TABLET PO SCH ×2 (08:37→21:04)
[2022-02-16] MEDS: ASPIRIN EC 81 MG TABLET PO SCH (08:37)
[2022-02-16] MEDS: FAMOTIDINE 20 MG TABLET PO SCH (08:38)
[2022-02-16] MEDS: minoxidiL 2.5 MG TABLET PO SCH (08:38)
[2022-02-16] MEDS: hydrALAZINE 25 MG TABLET PO SCH ×3 (08:38→21:04)
[2022-02-16] MEDS: DEXAMETHASONE 4 MG TABLET PO SCH (08:38)
[2022-02-16] MEDS: FERROUS SULFATE 325 MG TABLET PO SCH ×2 (08:38→16:03)
[2022-02-16] MEDS: SEVELAMER CARBONATE 800 MG TABLET PO SCH (08:38)
[2022-02-16] MEDS: ASCORBIC ACID 500 MG TABLET PO SCH (08:38)
[2022-02-16] MEDS: AZITHROMYCIN 250 MG TABLET PO SCH (08:38)
[2022-02-16] MEDS: HEPARIN 5,000 UNIT/1 ML VIAL SUBCUT SCH ×2 (08:43→21:05)
[2022-02-16] MEDS: CHOLECALCIFEROL 5,000 UNIT TABLET PO SCH (13:10)
[2022-02-16] MEDS ORDERED: TUBERCULIN SKIN TEST 0.1 ML SYRINGE INTRADERM ONE ×3 (17:00→19:00)
[2022-02-16] MEDS: ATORVASTATIN 40 MG TABLET PO SCH (21:04)
[2022-02-17] MEDS: ZALEPLON 5 MG CAPSULE PO PRN ×2 (00:28→20:46)
[2022-02-17] MEDS: ALBUTEROL INHALER 18 GM INH SCH ×3 (00:29→20:45)
[2022-02-17 05:44] LABS: Basophils % 0.1 % (0.0-0.8); Hematocrit 27.1 VOL% (35.7-47.0); Hemoglobin 8.9 GM/DL (12.0-16.0); Immature Granulocytes % 0.5 %; Immature Granulocytes Absolute 0.05 #; Lymphocytes % 10.3 % (21.3-54.2); Mean Corpuscular HGB Conc 32.8 GM/DL (32-36); Mean Corpuscular Volume 74.7 FL (87-102); Mean Platelet Volume 10.7 FL (9.6-12.0); Monocytes # 0.4 10*3/uL (0.11-0.8); Monocytes % 4.6 % (1.7-12.7); NRBC # 0.02 10*3/uL; Neutrophils % 84.5 % (38.7-73.9); Platelet Count 183 T/CUMM (130-400); Red Blood Count 3.63 MC/CUMM (3.8-5.5); Red Cell Distribution Width 19.1 % (9.3-17.3); White Blood Count 9.5 T/CUMM (4-12)
[2022-02-17 06:13] LABS: Calcium 8.3 MG/DL (8.5-10.1); Osmolality,Calculated 286.8 MOS/KG (273-304)
[2022-02-17 06:16] LABS: Alanine Aminotransferase 17 U/L (13-56); Albumin 2.8 G/DL (3.4-5.0); Alkaline Phosphatase 104 U/L (45-117); Aspartate Amino Transferase 16 U/L (0-37); Bilirubin,Total < 0.39 MG/DL (0.20-1.00); Blood Urea Nitrogen 41 MG/DL (7-18); Calcium 8.3 MG/DL (8.5-10.1); Carbon Dioxide 26 MMOL/L (21-32); Chloride 103 MMOL/L (98-107); Glucose 138 MG/DL (74-106); Potassium 3.9 MMOL/L (3.5-5.1); Sodium 136 MMOL/L (136-145)
[2022-02-17] MEDS: INSULIN LISPRO 100 UNIT/ML SUBCUT SCH ×4 (08:04→21:01)
[2022-02-17] MEDS: HEPARIN 5,000 UNIT/1 ML VIAL SUBCUT SCH ×2 (08:21→20:50)
[2022-02-17] MEDS: SEVELAMER CARBONATE 800 MG TABLET PO SCH (08:22)
[2022-02-17] MEDS: FAMOTIDINE 20 MG TABLET PO SCH (08:23)
[2022-02-17] MEDS: FERROUS SULFATE 325 MG TABLET PO SCH ×2 (08:23→16:29)
[2022-02-17] MEDS: carvediloL 6.25 MG TABLET PO SCH ×2 (08:23→20:49)
[2022-02-17] MEDS: DEXAMETHASONE 4 MG TABLET PO SCH (08:23)
[2022-02-17] MEDS: hydrALAZINE 25 MG TABLET PO SCH ×3 (08:24→20:49)
[2022-02-17] MEDS: AZITHROMYCIN 250 MG TABLET PO SCH (08:24)
[2022-02-17] MEDS: ASCORBIC ACID 500 MG TABLET PO SCH (08:24)
[2022-02-17] MEDS: ASPIRIN EC 81 MG TABLET PO SCH (08:24)
[2022-02-17] MEDS: minoxidiL 2.5 MG TABLET PO SCH (08:47)
[2022-02-17] MEDS: CHOLECALCIFEROL 5,000 UNIT TABLET PO SCH (12:40)
[2022-02-17] MEDS: ATORVASTATIN 40 MG TABLET PO SCH (20:50)
[2022-02-18] MEDS: ALBUTEROL INHALER 18 GM INH SCH ×3 (01:26→21:37)
[2022-02-18 06:46] LABS: Basophils % 0.1 % (0.0-0.8); Hematocrit 25.5 VOL% (35.7-47.0); Hemoglobin 8.4 GM/DL (12.0-16.0); Immature Granulocytes % 1.1 %; Lymphocytes % 11.2 % (21.3-54.2); Mean Corpuscular HGB Conc 32.9 GM/DL (32-36); Mean Corpuscular Volume 74.6 FL (87-102); Mean Platelet Volume 9.7 FL (9.6-12.0); Monocytes # 0.5 10*3/uL (0.11-0.8); Monocytes % 4.8 % (1.7-12.7); Neutrophils % 82.8 % (38.7-73.9); Platelet Count 173 T/CUMM (130-400); Red Blood Count 3.42 MC/CUMM (3.8-5.5); Red Cell Distribution Width 19.6 % (9.3-17.3); White Blood Count 9.3 T/CUMM (4-12)
[2022-02-18 07:05] LABS: Alanine Aminotransferase 15 U/L (13-56); Alkaline Phosphatase 88 U/L (45-117); Aspartate Amino Transferase 14 U/L (0-37); Bilirubin,Total < 0.39 MG/DL (0.20-1.00); Blood Urea Nitrogen 65 MG/DL (7-18); Calcium 8.6 MG/DL (8.5-10.1); Carbon Dioxide 25 MMOL/L (21-32); Chloride 102 MMOL/L (98-107); Glucose 123 MG/DL (74-106); Osmolality,Calculated 292.8 MOS/KG (273-304); Potassium 3.9 MMOL/L (3.5-5.1); Sodium 137 MMOL/L (136-145); Total Protein 6.5 G/DL (6.4-8.2)
[2022-02-18] MEDS: HEPARIN 5,000 UNIT/1 ML VIAL SUBCUT SCH ×2 (08:52→21:42)
[2022-02-18] MEDS: SEVELAMER CARBONATE 800 MG TABLET PO SCH (08:52)
[2022-02-18] MEDS: ASPIRIN EC 81 MG TABLET PO SCH (08:53)
[2022-02-18] MEDS: DEXAMETHASONE 4 MG TABLET PO SCH (08:53)
[2022-02-18] MEDS: AZITHROMYCIN 250 MG TABLET PO SCH (08:53)
[2022-02-18] MEDS: minoxidiL 2.5 MG TABLET PO SCH (08:54)
[2022-02-18] MEDS: hydrALAZINE 25 MG TABLET PO SCH ×3 (08:54→21:39)
[2022-02-18] MEDS: ASCORBIC ACID 500 MG TABLET PO SCH (08:54)
[2022-02-18] MEDS: FAMOTIDINE 20 MG TABLET PO SCH (08:54)
[2022-02-18] MEDS: carvediloL 6.25 MG TABLET PO SCH ×2 (08:54→21:39)
[2022-02-18] MEDS: FERROUS SULFATE 325 MG TABLET PO SCH ×2 (08:54→16:53)
[2022-02-18] MEDS: INSULIN LISPRO 100 UNIT/ML SUBCUT SCH ×4 (09:15→21:40)
[2022-02-18] MEDS: CHOLECALCIFEROL 5,000 UNIT TABLET PO SCH (11:49)
[2022-02-18] MEDS: ZALEPLON 5 MG CAPSULE PO PRN (21:39)
[2022-02-18] MEDS: ATORVASTATIN 40 MG TABLET PO SCH (21:39)
[2022-02-19] MEDS: ALBUTEROL INHALER 18 GM INH SCH ×5 (00:38→21:33)
[2022-02-19 05:03] LABS: Hematocrit 24.9 VOL% (35.7-47.0); Hemoglobin 8.1 GM/DL (12.0-16.0); Immature Granulocytes % 1.3 %; Immature Granulocytes Absolute 0.12 #; Lymphocytes # 1.6 10*3/uL (1.4-4.0); Lymphocytes % 17.6 % (21.3-54.2); Mean Corpuscular HGB Conc 32.5 GM/DL (32-36); Mean Corpuscular Volume 74.3 FL (87-102); Mean Platelet Volume 9.9 FL (9.6-12.0); Monocytes # 0.7 10*3/uL (0.11-0.8); Monocytes % 7.3 % (1.7-12.7); Neutrophils % 73.8 % (38.7-73.9); Platelet Count 166 T/CUMM (130-400); Red Blood Count 3.35 MC/CUMM (3.8-5.5); Red Cell Distribution Width 19.3 % (9.3-17.3); White Blood Count 9.3 T/CUMM (4-12)
[2022-02-19 05:18] LABS: Calcium 8.3 MG/DL (8.5-10.1); Osmolality,Calculated 286.7 MOS/KG (273-304)
[2022-02-19] MEDS: INSULIN LISPRO 100 UNIT/ML SUBCUT SCH ×4 (10:15→21:33)
[2022-02-19] MEDS: FERROUS SULFATE 325 MG TABLET PO SCH ×2 (10:16→18:01)
[2022-02-19] MEDS: hydrALAZINE 25 MG TABLET PO SCH ×3 (10:16→21:33)
[2022-02-19] MEDS: ASPIRIN EC 81 MG TABLET PO SCH (10:16)
[2022-02-19] MEDS: SEVELAMER CARBONATE 800 MG TABLET PO SCH (10:16)
[2022-02-19] MEDS: carvediloL 6.25 MG TABLET PO SCH ×2 (10:17→21:33)
[2022-02-19] MEDS: AZITHROMYCIN 250 MG TABLET PO SCH (10:17)
[2022-02-19] MEDS: FAMOTIDINE 20 MG TABLET PO SCH (10:17)
[2022-02-19] MEDS: ASCORBIC ACID 500 MG TABLET PO SCH (10:17)
[2022-02-19] MEDS: DEXAMETHASONE 4 MG TABLET PO SCH (10:17)
[2022-02-19] MEDS: HEPARIN 5,000 UNIT/1 ML VIAL SUBCUT SCH ×2 (10:17→21:33)
[2022-02-19] MEDS: minoxidiL 2.5 MG TABLET PO SCH (10:17)
[2022-02-19] MEDS: CHOLECALCIFEROL 5,000 UNIT TABLET PO SCH (13:19)
[2022-02-19] MEDS: ATORVASTATIN 40 MG TABLET PO SCH (21:33)
[2022-02-19] MEDS: ZALEPLON 5 MG CAPSULE PO PRN (21:33)
[2022-02-20] MEDS: ALBUTEROL INHALER 18 GM INH SCH ×3 (00:18→13:08)
[2022-02-20 06:54] LABS: Basophils % 0.1 % (0.0-0.8); Eosinophils % 0.2 % (0.00-10.9); Hematocrit 26.2 VOL% (35.7-47.0); Hemoglobin 8.6 GM/DL (12.0-16.0); Immature Granulocytes % 2.1 %; Immature Granulocytes Absolute 0.22 #; Lymphocytes # 1.9 10*3/uL (1.4-4.0); Lymphocytes % 18.6 % (21.3-54.2); Mean Corpuscular HGB Conc 32.8 GM/DL (32-36); Mean Corpuscular Volume 73.8 FL (87-102); Monocytes # 0.7 10*3/uL (0.11-0.8); Monocytes % 7.1 % (1.7-12.7); NRBC # 0.02 10*3/uL; Neutrophils % 71.9 % (38.7-73.9); Platelet Count 169 T/CUMM (130-400); Red Blood Count 3.55 MC/CUMM (3.8-5.5); Red Cell Distribution Width 19.5 % (9.3-17.3); White Blood Count 10.4 T/CUMM (4-12)
[2022-02-20 07:07] LABS: Calcium 8.4 MG/DL (8.5-10.1); Osmolality,Calculated 291.2 MOS/KG (273-304); Potassium 4.3 MMOL/L (3.5-5.1)
[2022-02-20] MEDS: INSULIN LISPRO 100 UNIT/ML SUBCUT SCH ×4 (09:41→22:20)
[2022-02-20] MEDS: AZITHROMYCIN 250 MG TABLET PO SCH (10:12)
[2022-02-20] MEDS: DEXAMETHASONE 4 MG TABLET PO SCH (10:13)
[2022-02-20] MEDS: ASPIRIN EC 81 MG TABLET PO SCH (10:14)
[2022-02-20] MEDS: SEVELAMER CARBONATE 800 MG TABLET PO SCH (10:14)
[2022-02-20] MEDS: ASCORBIC ACID 500 MG TABLET PO SCH (10:15)
[2022-02-20] MEDS: FERROUS SULFATE 325 MG TABLET PO SCH ×2 (10:15→17:08)
[2022-02-20] MEDS: carvediloL 6.25 MG TABLET PO SCH ×2 (10:17→22:20)
[2022-02-20] MEDS: FAMOTIDINE 20 MG TABLET PO SCH (10:18)
[2022-02-20] MEDS: minoxidiL 2.5 MG TABLET PO SCH (10:18)
[2022-02-20] MEDS: HEPARIN 5,000 UNIT/1 ML VIAL SUBCUT SCH ×2 (10:21→22:41)
[2022-02-20] MEDS: hydrALAZINE 25 MG TABLET PO SCH ×3 (10:25→22:15)
[2022-02-20] MEDS: CHOLECALCIFEROL 5,000 UNIT TABLET PO SCH (13:08)
[2022-02-20] MEDS: ATORVASTATIN 40 MG TABLET PO SCH (22:20)
[2022-02-21 06:26] LABS: Basophils % 0.1 % (0.0-0.8); Eosinophils % 0.2 % (0.00-10.9); Hematocrit 25.1 VOL% (35.7-47.0); Hemoglobin 8.4 GM/DL (12.0-16.0); Immature Granulocytes % 1.7 %; Immature Granulocytes Absolute 0.17 #; Lymphocytes # 1.9 10*3/uL (1.4-4.0); Lymphocytes % 18.4 % (21.3-54.2); Mean Corpuscular HGB Conc 33.5 GM/DL (32-36); Mean Corpuscular Volume 73.6 FL (87-102); Mean Platelet Volume 9.9 FL (9.6-12.0); Monocytes % 9.5 % (1.7-12.7); Neutrophils % 70.1 % (38.7-73.9); Platelet Count 180 T/CUMM (130-400); Red Blood Count 3.41 MC/CUMM (3.8-5.5); Red Cell Distribution Width 19.3 % (9.3-17.3); White Blood Count 10.1 T/CUMM (4-12)
[2022-02-21 06:42] LABS: Calcium 8.5 MG/DL (8.5-10.1); Osmolality,Calculated 286.8 MOS/KG (273-304)
[2022-02-21] MEDS: INSULIN LISPRO 100 UNIT/ML SUBCUT SCH ×4 (08:35→20:10)
[2022-02-21] MEDS: ASPIRIN EC 81 MG TABLET PO SCH (10:08)
[2022-02-21] MEDS: FERROUS SULFATE 325 MG TABLET PO SCH ×2 (10:08→17:59)
[2022-02-21] MEDS: FAMOTIDINE 20 MG TABLET PO SCH (10:08)
[2022-02-21] MEDS: SEVELAMER CARBONATE 800 MG TABLET PO SCH (10:08)
[2022-02-21] MEDS: ASCORBIC ACID 500 MG TABLET PO SCH (10:08)
[2022-02-21] MEDS: hydrALAZINE 25 MG TABLET PO SCH ×3 (10:09→21:14)
[2022-02-21] MEDS: carvediloL 6.25 MG TABLET PO SCH ×2 (10:09→21:13)
[2022-02-21] MEDS: minoxidiL 2.5 MG TABLET PO SCH (10:09)
[2022-02-21] MEDS: ALBUTEROL INHALER 18 GM INH SCH ×5 (10:10→19:15)
[2022-02-21] MEDS: HEPARIN 5,000 UNIT/1 ML VIAL SUBCUT SCH ×2 (10:16→21:25)
[2022-02-21] MEDS: CHOLECALCIFEROL 5,000 UNIT TABLET PO SCH (12:40)
[2022-02-21] MEDS: MIRTAZAPINE 15 MG TABLET PO SCH (21:13)
[2022-02-21] MEDS: ATORVASTATIN 40 MG TABLET PO SCH (21:14)
[2022-02-22] MEDS: ALBUTEROL INHALER 18 GM INH SCH ×2 (04:04→06:05)
[2022-02-22 06:12] LABS: Basophils % 0.1 % (0.0-0.8); Eosinophils # 0.2 10*3/uL (0.0-0.87); Eosinophils % 2.2 % (0.00-10.9); Hematocrit 25.8 VOL% (35.7-47.0); Hemoglobin 8.5 GM/DL (12.0-16.0); Immature Granulocytes % 1.6 %; Immature Granulocytes Absolute 0.15 #; Lymphocytes # 2.4 10*3/uL (1.4-4.0); Lymphocytes % 24.7 % (21.3-54.2); Mean Corpuscular HGB Conc 32.9 GM/DL (32-36); Mean Corpuscular Volume 73.9 FL (87-102); Mean Platelet Volume 11.1 FL (9.6-12.0); Neutrophils % 61.4 % (38.7-73.9); Platelet Count 194 T/CUMM (130-400); Red Blood Count 3.49 MC/CUMM (3.8-5.5); Red Cell Distribution Width 19.4 % (9.3-17.3); White Blood Count 9.6 T/CUMM (4-12)
[2022-02-22 07:02] LABS: Calcium 8.3 MG/DL (8.5-10.1); Osmolality,Calculated 291.7 MOS/KG (273-304); Potassium 4.3 MMOL/L (3.5-5.1)
[2022-02-22] MEDS: hydrALAZINE 25 MG TABLET PO SCH ×2 (10:30→17:15)
[2022-02-22] MEDS: FERROUS SULFATE 325 MG TABLET PO SCH ×2 (10:30→17:15)
[2022-02-22] MEDS: SEVELAMER CARBONATE 800 MG TABLET PO SCH (10:30)
[2022-02-22] MEDS: ASPIRIN EC 81 MG TABLET PO SCH (10:30)
[2022-02-22] MEDS: FAMOTIDINE 20 MG TABLET PO SCH (10:31)
[2022-02-22] MEDS: ASCORBIC ACID 500 MG TABLET PO SCH (10:31)
[2022-02-22] MEDS: minoxidiL 2.5 MG TABLET PO SCH (10:31)
[2022-02-22] MEDS: INSULIN LISPRO 100 UNIT/ML SUBCUT SCH ×3 (10:32→18:08)
[2022-02-22] MEDS: carvediloL 6.25 MG TABLET PO SCH ×2 (10:32→22:58)
[2022-02-22] MEDS: HEPARIN 5,000 UNIT/1 ML VIAL SUBCUT SCH ×2 (10:42→22:57)
[2022-02-22] MEDS ORDERED: KETOROLAC 15 MG/1 ML VIAL IV ONE (14:53)
[2022-02-22] MEDS: CHOLECALCIFEROL 5,000 UNIT TABLET PO SCH (15:17)
[2022-02-22] MEDS: MIRTAZAPINE 15 MG TABLET PO SCH (22:58)
[2022-02-22] MEDS: ATORVASTATIN 40 MG TABLET PO SCH (22:58)
[2022-02-23] MEDS: hydrALAZINE 25 MG TABLET PO SCH ×4 (00:46→21:21)
[2022-02-23] MEDS: ALBUTEROL INHALER 18 GM INH SCH ×3 (00:46→21:24)
[2022-02-23] MEDS: INSULIN LISPRO 100 UNIT/ML SUBCUT SCH ×3 (00:49→20:46)
[2022-02-23 06:22] LABS: Basophils % 0.1 % (0.0-0.8); Eosinophils # 0.4 10*3/uL (0.0-0.87); Hematocrit 25.9 VOL% (35.7-47.0); Hemoglobin 8.5 GM/DL (12.0-16.0); Immature Granulocytes % 1.6 %; Immature Granulocytes Absolute 0.14 #; Lymphocytes # 1.9 10*3/uL (1.4-4.0); Lymphocytes % 21.7 % (21.3-54.2); Mean Corpuscular HGB Conc 32.8 GM/DL (32-36); Mean Corpuscular Volume 73.4 FL (87-102); Mean Platelet Volume 10.7 FL (9.6-12.0); Monocytes # 0.9 10*3/uL (0.11-0.8); Monocytes % 10.4 % (1.7-12.7); Neutrophils % 62.2 % (38.7-73.9); Platelet Count 181 T/CUMM (130-400); Red Blood Count 3.53 MC/CUMM (3.8-5.5); Red Cell Distribution Width 19.4 % (9.3-17.3); White Blood Count 8.7 T/CUMM (4-12)
[2022-02-23 06:40] LABS: Calcium 8.3 MG/DL (8.5-10.1); Potassium 4.8 MMOL/L (3.5-5.1)
[2022-02-23] MEDS: FAMOTIDINE 20 MG TABLET PO SCH (10:19)
[2022-02-23] MEDS: minoxidiL 2.5 MG TABLET PO SCH (10:20)
[2022-02-23] MEDS: ASPIRIN EC 81 MG TABLET PO SCH (10:20)
[2022-02-23] MEDS: SEVELAMER CARBONATE 800 MG TABLET PO SCH (10:20)
[2022-02-23] MEDS: FERROUS SULFATE 325 MG TABLET PO SCH ×2 (10:20→17:13)
[2022-02-23] MEDS: HEPARIN 5,000 UNIT/1 ML VIAL SUBCUT SCH ×2 (10:21→21:23)
[2022-02-23] MEDS: ASCORBIC ACID 500 MG TABLET PO SCH (10:24)
[2022-02-23] MEDS: carvediloL 6.25 MG TABLET PO SCH ×2 (10:24→21:22)
[2022-02-23] MEDS: CHOLECALCIFEROL 5,000 UNIT TABLET PO SCH (17:13)
[2022-02-23 18:10] LABS: Alanine Aminotransferase 17 U/L (13-56); Alkaline Phosphatase 73 U/L (45-117); Aspartate Amino Transferase 22 U/L (0-37); Bilirubin,Indirect 0.3 MG/DL (0.0-1.0); Bilirubin,Total < 0.39 MG/DL (0.20-1.00)
[2022-02-23 19:59] LABS: AFP Tumor < 2.2 NG/ML (0-8); Cancer Antigen 19-9 < 1.20 U/ML (0-35)
[2022-02-23] MEDS: ATORVASTATIN 40 MG TABLET PO SCH (21:21)
[2022-02-23] MEDS: MIRTAZAPINE 15 MG TABLET PO SCH (21:21)
[2022-02-24 05:12] LABS: Basophils % 0.1 % (0.0-0.8); Eosinophils # 0.3 10*3/uL (0.0-0.87); Eosinophils % 3.4 % (0.00-10.9); Hematocrit 26.2 VOL% (35.7-47.0); Hemoglobin 8.6 GM/DL (12.0-16.0); Immature Granulocytes % 0.8 %; Immature Granulocytes Absolute 0.08 #; Lymphocytes # 1.8 10*3/uL (1.4-4.0); Lymphocytes % 18.4 % (21.3-54.2); Mean Corpuscular HGB Conc 32.8 GM/DL (32-36); Mean Platelet Volume 11.1 FL (9.6-12.0); Monocytes % 10.2 % (1.7-12.7); Neutrophils % 67.1 % (38.7-73.9); Platelet Count 155 T/CUMM (130-400); Red Blood Count 3.54 MC/CUMM (3.8-5.5); Red Cell Distribution Width 19.5 % (9.3-17.3); White Blood Count 9.6 T/CUMM (4-12)
[2022-02-24 05:29] LABS: Alanine Aminotransferase 19 U/L (13-56); Albumin 2.8 G/DL (3.4-5.0); Alkaline Phosphatase 79 U/L (45-117); Aspartate Amino Transferase 26 U/L (0-37); Bilirubin,Total < 0.39 MG/DL (0.20-1.00); Blood Urea Nitrogen 52 MG/DL (7-18); Calcium 8.3 MG/DL (8.5-10.1); Carbon Dioxide 24 MMOL/L (21-32); Chloride 103 MMOL/L (98-107); Glucose 89 MG/DL (74-106); Osmolality,Calculated 280.2 MOS/KG (273-304); Sodium 134 MMOL/L (136-145); Total Protein 6.4 G/DL (6.4-8.2)
[2022-02-24] MEDS: ALBUTEROL INHALER 18 GM INH SCH ×4 (05:53→21:11)
[2022-02-24] MEDS: INSULIN LISPRO 100 UNIT/ML SUBCUT SCH ×4 (06:58→20:47)
[2022-02-24] MEDS: ASCORBIC ACID 500 MG TABLET PO SCH (09:07)
[2022-02-24] MEDS: minoxidiL 2.5 MG TABLET PO SCH (09:07)
[2022-02-24] MEDS: SEVELAMER CARBONATE 800 MG TABLET PO SCH (09:07)
[2022-02-24] MEDS: ASPIRIN EC 81 MG TABLET PO SCH (09:07)
[2022-02-24] MEDS: FERROUS SULFATE 325 MG TABLET PO SCH ×2 (09:07→17:36)
[2022-02-24] MEDS: FAMOTIDINE 20 MG TABLET PO SCH (09:07)
[2022-02-24] MEDS: carvediloL 6.25 MG TABLET PO SCH ×2 (09:08→21:11)
[2022-02-24] MEDS: HEPARIN 5,000 UNIT/1 ML VIAL SUBCUT SCH ×2 (09:08→21:12)
[2022-02-24] MEDS: hydrALAZINE 25 MG TABLET PO SCH ×3 (09:08→21:11)
[2022-02-24] MEDS: CHOLECALCIFEROL 5,000 UNIT TABLET PO SCH (13:00)
[2022-02-24] MEDS: MIRTAZAPINE 15 MG TABLET PO SCH (21:11)
[2022-02-24] MEDS: ATORVASTATIN 40 MG TABLET PO SCH (21:11)
[2022-02-25] MEDS: ALBUTEROL INHALER 18 GM INH SCH ×3 (02:19→14:25)
[2022-02-25 05:33] LABS: Basophils % 0.1 % (0.0-0.8); Eosinophils # 0.3 10*3/uL (0.0-0.87); Eosinophils % 2.7 % (0.00-10.9); Hematocrit 25.5 VOL% (35.7-47.0); Hemoglobin 8.4 GM/DL (12.0-16.0); Immature Granulocytes % 1.5 %; Immature Granulocytes Absolute 0.16 #; Lymphocytes # 1.5 10*3/uL (1.4-4.0); Lymphocytes % 13.9 % (21.3-54.2); Mean Corpuscular HGB Conc 32.9 GM/DL (32-36); Mean Corpuscular Volume 73.3 FL (87-102); Mean Platelet Volume 10.5 FL (9.6-12.0); Monocytes # 1.1 10*3/uL (0.11-0.8); Monocytes % 10.1 % (1.7-12.7); Neutrophils % 71.7 % (38.7-73.9); Platelet Count 171 T/CUMM (130-400); Red Blood Count 3.48 MC/CUMM (3.8-5.5); Red Cell Distribution Width 19.4 % (9.3-17.3); White Blood Count 10.5 T/CUMM (4-12)
[2022-02-25 05:50] LABS: Calcium 8.8 MG/DL (8.5-10.1); Potassium 4.8 MMOL/L (3.5-5.1)
[2022-02-25] MEDS: INSULIN LISPRO 100 UNIT/ML SUBCUT SCH ×4 (07:51→21:43)
[2022-02-25] MEDS: FERROUS SULFATE 325 MG TABLET PO SCH ×2 (07:51→18:33)
[2022-02-25] MEDS: SEVELAMER CARBONATE 800 MG TABLET PO SCH (07:52)
[2022-02-25] MEDS: hydrALAZINE 25 MG TABLET PO SCH ×3 (10:48→20:57)
[2022-02-25] MEDS: ASPIRIN EC 81 MG TABLET PO SCH (10:48)
[2022-02-25] MEDS: minoxidiL 2.5 MG TABLET PO SCH (10:49)
[2022-02-25] MEDS: HEPARIN 5,000 UNIT/1 ML VIAL SUBCUT SCH ×2 (10:49→20:56)
[2022-02-25] MEDS: carvediloL 6.25 MG TABLET PO SCH ×2 (10:49→20:57)
[2022-02-25] MEDS: FAMOTIDINE 20 MG TABLET PO SCH (10:49)
[2022-02-25] MEDS: ASCORBIC ACID 500 MG TABLET PO SCH (10:50)
[2022-02-25] MEDS: CHOLECALCIFEROL 5,000 UNIT TABLET PO SCH (11:51)
[2022-02-25] MEDS: ATORVASTATIN 40 MG TABLET PO SCH (20:56)
[2022-02-25] MEDS: MIRTAZAPINE 15 MG TABLET PO SCH (20:57)
[2022-02-26] MEDS: ALBUTEROL INHALER 18 GM INH SCH ×3 (04:53→15:16)
[2022-02-26 06:27] LABS: Basophils % 0.1 % (0.0-0.8); Eosinophils # 0.2 10*3/uL (0.0-0.87); Eosinophils % 3.1 % (0.00-10.9); Hematocrit 26.2 VOL% (35.7-47.0); Hemoglobin 8.4 GM/DL (12.0-16.0); Immature Granulocytes % 1.3 %; Lymphocytes # 1.4 10*3/uL (1.4-4.0); Lymphocytes % 17.7 % (21.3-54.2); Mean Corpuscular HGB Conc 32.1 GM/DL (32-36); Mean Corpuscular Volume 75.5 FL (87-102); Mean Platelet Volume 10.4 FL (9.6-12.0); Monocytes # 0.8 10*3/uL (0.11-0.8); Monocytes % 10.5 % (1.7-12.7); Neutrophils % 67.3 % (38.7-73.9); Platelet Count 160 T/CUMM (130-400); Red Blood Count 3.47 MC/CUMM (3.8-5.5); Red Cell Distribution Width 19.6 % (9.3-17.3); White Blood Count 7.8 T/CUMM (4-12)
[2022-02-26 06:40] LABS: Calcium 8.7 MG/DL (8.5-10.1); Osmolality,Calculated 277.8 MOS/KG (273-304); Potassium 4.5 MMOL/L (3.5-5.1)
[2022-02-26] MEDS: INSULIN LISPRO 100 UNIT/ML SUBCUT SCH ×3 (07:58→17:38)
[2022-02-26] MEDS: SEVELAMER CARBONATE 800 MG TABLET PO SCH (09:36)
[2022-02-26] MEDS: ASPIRIN EC 81 MG TABLET PO SCH (09:36)
[2022-02-26] MEDS: carvediloL 6.25 MG TABLET PO SCH ×2 (09:36→17:49)
[2022-02-26] MEDS: FERROUS SULFATE 325 MG TABLET PO SCH ×2 (09:36→17:49)
[2022-02-26] MEDS: HEPARIN 5,000 UNIT/1 ML VIAL SUBCUT SCH (09:37)
[2022-02-26] MEDS: ASCORBIC ACID 500 MG TABLET PO SCH (09:37)
[2022-02-26] MEDS: FAMOTIDINE 20 MG TABLET PO SCH (09:37)
[2022-02-26] MEDS: hydrALAZINE 25 MG TABLET PO SCH ×2 (10:35→15:16)
[2022-02-26] MEDS: minoxidiL 2.5 MG TABLET PO SCH (10:35)
[2022-02-26 11:40] VITALS: BP 120/52
[2022-02-26] MEDS: CHOLECALCIFEROL 5,000 UNIT TABLET PO SCH (15:16)
== END 2022-02-26 18:20 | disposition swing bed (61) | DRG 640 ==
LOC: N.ED 04:58 → SUATTDRO 07:28 → N.EDINP 07:28 → N.3E 08:11
PROVIDERS: ADMIT Internal Medicine; ATTEND Internal Medicine